=== PATIENT | male | born 2000 | race Caucasian/White ===

== ENCOUNTER 2021-05-03 18:39 | Emergency (ER) | payer OTHER ==
[~2021-05-03] VITALS: Ht 172.7 cm; Wt 77.3 kg
[2021-05-03 18:43] VITALS: TEMP 97
[2021-05-03 20:33] VITALS: BP 133/74; PULSE 87
[2021-05-03] MEDS ORDERED: PREDNISONE20 MG PO (21:07)
== END 2021-05-03 20:33 | disposition home or self-care (01) ==
LOC: COL.ER 18:39
DX: T63.441A Toxic effect of venom of bees, accidental (unintentional), initial encounter (principal); F17.290 Nicotine dependence, other tobacco product, uncomplicated; Z91.038 Other insect allergy status
CPT/HCPCS: J1200; J2930; J7030